=== PATIENT | male | born 2005 | race Caucasian/White ===

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

== ENCOUNTER 2024-02-02 17:20 | Emergency (ER) | payer BC, OTHER ==
[~2024-02-02] VITALS: Ht 172.7 cm; Wt 65.0 kg
[2024-02-02 19:48] LABS: Basophils # (auto) 0 10 ^3/uL (0-0.2); Basophils % (auto) 0.5 % (0.0-2.0); Eosinophils # (auto) 0 10 ^3/uL (0-0.8); Eosinophils % (auto) 0.4 % (0.0-7.0); Hematocrit 46.2 % (41.0-53.0); Lymphocytes # (auto) 1.6 10 ^3/uL (0.4-5.4); Mean Corpuscular Hemoglobin 31.4 pg (28.0-32.0); Mean Corpuscular Hgb Conc. 34.6 g/dL (32.0-36.0); Mean Corpuscular Volume 90.8 fL (80.0-100.0); Monocytes # (auto) 0.5 10 ^3/uL (0-1.3); Monocytes % (auto) 8.5 % (0.0-12.0); Neutrophils # (auto) 4.2 10 ^3/uL (1.6-8.6); Neutrophils % (auto) 65.6 % (37.0-80.0); Platelet Count (auto) 241 10^3/uL (140-450); Red Blood Cells 5.09 10^6/uL (4.5-5.90); Red Cell Distribution Width 13.1 % (11.8-14.3); White Blood Cell 6.4 10^3/uL (4.4-10.8)
[2024-02-02 19:56] LABS: Chloride 105 mmol/L (98-107); Potassium 4.6 mmol/L (3.5-5.1); Sodium 139 mmol/L (136-145)
[2024-02-02 19:57] LABS: Anion Gap 2 (5-15); Calcium 10.2 mg/dL (8.7-10.4); Carbon Dioxide 32 mmol/L (20-30)
[2024-02-02 20:02] LABS: BUN/Creatinine Ratio 6.2 (10.0-20.0); Blood Alcohol < 3.0 mg/dL (<10); Blood Urea Nitrogen 6 mg/dL (9-23); Glucose 117 mg/dL (74-106)
[2024-02-02 20:10] VITALS: BP 117/69; PULSE 62; RESP 12; TEMP 98.4; O2SAT 96
== END 2024-02-02 21:56 | disposition left against medical advice (07) ==
LOC: ER 17:20
DX: R45.851 Suicidal ideations (principal); Z79.899 Other long term (current) drug therapy
CPT/HCPCS: 36415; 80048; 80320; 85025